=== PATIENT | female | born 1980 | race Asian ===

== ENCOUNTER 2017-03-11 15:10 | Emergency (ER) | payer OTHER ==
[~2017-03-11] VITALS: Ht 170.2 cm; Wt 195.0 kg
[~2017-03-11 15:10] MED LIST: CEPH500C20 PO; LABETALOL100 MG OR; MELOXICAM7.5 MG OR; TRAM50TA PO; [UNRECOGNIZED DRUG - CODE] PO
[2017-03-11 15:13] VITALS: TEMP 98.4
[2017-03-11 15:55] LABS: PLATELET COUNT 453 K/uL (152-353)
[2017-03-11 16:10] LABS: POTASSIUM 3.9 mmol/L (3.6-5.2); SODIUM 134 mmol/L (136-145)
[2017-03-11 17:33] VITALS: BP 169/92
== END 2017-03-11 17:34 | disposition home or self-care (01) ==
LOC: ED 15:10
DX: I10 Essential (primary) hypertension (principal); E66.09 Other obesity due to excess calories
CPT/HCPCS: 36415; 80053; 81000; 85027; 87081; 87880; 96374; 99284; J3490

== ENCOUNTER 2019-04-14 04:24 | Emergency (ER) | payer OTHER ==
[~2019-04-14] VITALS: Ht 170.2 cm; Wt 199.6 kg
[2019-04-14 04:43] VITALS: TEMP 98.2
[2019-04-14 06:22] LABS: PLATELET COUNT 408 K/uL (152-353)
[2019-04-14 06:31] LABS: POTASSIUM 4.5 mmol/L (3.6-5.2)
[2019-04-14 06:41] VITALS: BP 150/95
[2019-04-14 07:30] LABS: PARTIAL THROMBOPLASTIN TIME 25.5 SECONDS (24.5-33.6)
== END 2019-04-14 06:41 | disposition home or self-care (01) ==
LOC: ED 04:24
PROVIDERS: Hospitalist
DX: G44.209 Tension-type headache, unspecified, not intractable (principal); I16.0 Hypertensive urgency; D64.9 Anemia, unspecified
CPT/HCPCS: 80048; 85027; 85610; 85730; 93005; 96372; 99284; J1885; J2405

== ENCOUNTER 2020-01-20 16:45 | Outpatient (CLI) | payer BC | END 2020-01-20 22:26 | disposition home or self-care (01) | LOC: RESP 16:45 | DX: R42 Dizziness and giddiness (principal) | CPT/HCPCS: 93005 ==

== ENCOUNTER 2021-04-20 01:13 | Emergency (ER) | payer OTHER ==
[~2021-04-20] VITALS: Ht 170.2 cm; Wt 199.6 kg
[2021-04-20 02:11] LABS: POTASSIUM 3.9 mmol/L (3.6-5.2); SODIUM 134 mmol/L (136-145)
[2021-04-20 02:15] LABS: PARTIAL THROMBOPLASTIN TIME 24.7 SECONDS (24.5-33.6); PLATELET COUNT 303 K/uL (152-353)
[2021-04-20 03:50] VITALS: BP 159/93
== END 2021-04-20 03:50 | disposition home or self-care (01) ==
LOC: ED 01:13
PROVIDERS: Emergency Medicine
DX: R06.09 Other forms of dyspnea (principal); N92.0 Excessive and frequent menstruation with regular cycle; E66.8 Other obesity
CPT/HCPCS: 36415; 80048; 84484; 85007; 85008; 85027; 85610; 85730; 93005; 99283

== ENCOUNTER 2021-09-11 12:00 | Outpatient (CLI) | payer OTHER | END 2021-09-11 19:01 | disposition home or self-care (01) | LOC: RAD 12:00 | PROVIDERS: ATTEND Nurse Practitioner Family | DX: M79.672 Pain in left foot (principal); M79.671 Pain in right foot ==